=== PATIENT | female | born 1985 | race African-American/Black ===

== ENCOUNTER 2022-06-12 10:20 | Inpatient (IN) | payer OTHER ==
[2022-06-12] MEDS ORDERED: CITRIC ACID/SODIUM CITRATE 30 ML UNIT-DOSE CUP PO ONE (10:45)
[2022-06-12] MEDS ORDERED: ELECTROLYTE-148 SOLN 1,000 ML IV ONE (10:45)
[2022-06-12 11:13] VITALS: BMI 28.8
[2022-06-12] MEDS: ELECTROLYTE-148 SOLN 1,000 ML IV SCH ×2 (11:15→14:20)
[2022-06-12] MEDS ORDERED: morphine SULFATE/PF 1 MG/2 ML (2cc Syringe - QUVA) EP ONE (16:28)
[2022-06-12] MEDS ORDERED: ACETAMINOPHEN 325 MG TABLET (FP) PO PRN ×2 (16:28→18:42)
[2022-06-12] MEDS ORDERED: ONDANSETRON 4 MG/2 ML VIAL IVPUSH PRN (16:28)
[2022-06-12] MEDS ORDERED: morphine SULFATE (PF) 1 MG/2 ML SYRINGE ONE (16:34)
[2022-06-12] MEDS ORDERED: ceFAZolin SODIUM 1 GM VIAL ONE (16:34)
[2022-06-12] MEDS ORDERED: PHENYLEPHRINE HCL 10 MG/1 ML SINGLE DOSE VIAL ONE (16:50)
[2022-06-12] MEDS ORDERED: OXYTOCIN 10 UNITS/ML VIAL ONE ×2 (16:58→17:06)
[2022-06-12] MEDS ORDERED: ONDANSETRON 4 MG/2 ML VIAL ONE (17:22)
[2022-06-12 18:25] LABS: CORD HCO3 24.8 mmHg (20-29); CORD PCO2 58.9 mmHg (30-78); CORD pH 7.243 (7.14-7.44)
[2022-06-12 18:25] LABS: CORD BASE EXCESS -1.4 mmol/L (0-2); CORD HCO3 26.9 mmHg (20-29); CORD PCO2 58.6 mmHg (30-78); CORD pH 7.279 (7.14-7.44)
[2022-06-12] MEDS ORDERED: IBUPROFEN 600 MG TABLET (FP) PO PRN (18:42)
[2022-06-12] MEDS ORDERED: METHYLERGONOVINE MALEATE 0.2 MG/1 ML AMP IM PRN (18:42)
[2022-06-12] MEDS ORDERED: IBUPROFEN 800 MG/8 ML IJ IVPB ONE ×2 (19:35)
[2022-06-12] MEDS ORDERED: OXYTOCIN 20 UNITS in 0.9% NS 20 UNIT/1,000 ML INFUS.BAG IV ONE (20:31)
[2022-06-12] MEDS: OXYTOCIN 20 UNITS in 0.9% NS 20 UNIT/1,000 ML INFUS.BAG IV SCH (20:40)
[2022-06-13] MEDS: OXYTOCIN 20 UNITS in 0.9% NS 20 UNIT/1,000 ML INFUS.BAG IV SCH (05:30)
[2022-06-13 09:09] LABS: BASO % 0.7 % (0-2.0); EOS % 1.7 % (0-4.5); HEMATOCRIT 32.8 % (32.4-45.2); LYMPH % 8.2 % (8-40); MCH 30.5 pg (25.7-33.7); MCHC 33.5 g/dl (32.0-36.0); MEAN PLT VOLUME 10.2 fl (7.5-11.1); MONO % 8.6 % (3.8-10.2); NEUT % 80.8 % (42.8-82.8); PLATELET COUNT 179 10^3/uL (134-434); RDW 15.2 % (11.6-15.6)
[2022-06-13] MEDS: IBUPROFEN 600 MG TABLET (FP) PO PRN ×2 (13:14→21:44)
[2022-06-13] MEDS: SIMETHICONE 80 MG TAB.CHEW (FP) PO PRN ×2 (13:14→19:44)
[2022-06-13] MEDS ORDERED: BISACODYL 10 MG SUPP.RECT RC PRN (18:42)
[2022-06-13] MEDS: oxyCODONE HCL 5 MG TABLET PO PRN (19:43)
[2022-06-14] MEDS: SIMETHICONE 80 MG TAB.CHEW (FP) PO PRN (05:34)
[2022-06-14] MEDS: IBUPROFEN 600 MG TABLET (FP) PO PRN (05:34)
[2022-06-14 11:09] VITALS: BP 125/87; PULSE 82; RESP 16; TEMP 98.2
[2022-06-14] MEDS: oxyCODONE HCL 5 MG TABLET PO PRN ×2 (11:18→16:41)
== END 2022-06-14 17:00 | disposition home or self-care (01) | DRG 787 ==
LOC: JDEL 10:20 → JLDR 10:21 → J3W 20:16
PROVIDERS: ADMIT Obstetrics & Gynecology Maternal & Fetal Medicine; ATTEND Obstetrics & Gynecology Maternal & Fetal Medicine
PROC: 10D00Z1 Extraction of Products of Conception, Low, Open Approach (ICD-10-PCS; principal; 2022-06-12)
DX: O34.211 Maternal care for low transverse scar from previous cesarean delivery (principal); O26.872 Cervical shortening, second trimester; O98.42 Viral hepatitis complicating childbirth; O26.23 Pregnancy care for patient with recurrent pregnancy loss, third trimester; O21.0 Mild hyperemesis gravidarum; Z3A.39 39 weeks gestation of pregnancy; Z37.0 Single live birth
CPT/HCPCS: 36415; 36600; 82803; 85025; 88307-TC